=== PATIENT | female | born 1985 | race Two or more races ===

== ENCOUNTER 2017-03-15 17:00 | Observation (INO) | payer MEDICAID ==
[~2017-03-15] VITALS: Ht 165.1 cm; Wt 102.5 kg
[~2017-03-15 17:00] MED LIST: ACYC1CAP23 PO; PRENTAB28 PO
[2017-03-15] MEDS ORDERED: NIFEdipine 10 MG CAP PO SCH (17:30)
[2017-03-15] MEDS ORDERED: BETAMETHASONE ACET (6MG/ML) 5ML VIAL ONE (17:52)
[2017-03-16] MEDS ORDERED: BETAMETHASONE ACET (6MG/ML) 5ML VIAL IM SCH (17:30)
== END 2017-03-15 18:45 | disposition home or self-care (01) | DRG 566 ==
LOC: LDRP 17:00
PROVIDERS: ADMIT Specialist; ATTEND Specialist
DX: O26.873 Cervical shortening, third trimester (principal); O30.009 Twin pregnancy, unspecified number of placenta and unspecified number of amniotic sacs, unspecified trimester; Z3A.32 32 weeks gestation of pregnancy
CPT/HCPCS: 59025; 81002; 96372; G0378; J0702

== ENCOUNTER 2017-03-16 17:33 | Observation (INO) | payer MEDICAID ==
[~2017-03-16] VITALS: Ht 30.5 cm; Wt 0.5 kg
[2017-03-16] MEDS ORDERED: BETAMETHASONE ACET (6MG/ML) 5ML VIAL IM ONE (17:45)
[2017-03-16 21:29] LABS: Urine Bilirubin Negative (Negative); Urine Blood Negative /uL (Negative); Urine Color Yellow (Yellow); Urine Glucose Normal (Normal); Urine Nitrite Negative (Negative); Urine RBC 4 /hpf (0 - 4); Urine Squamous Epithelial Cell MANY /hpf (<5); Urine Urobilinogen Normal (Negative)
[2017-03-16 21:30] LABS: Urine Ketone 1+ (Negative)
== END 2017-03-16 19:15 | disposition home or self-care (01) | DRG 566 ==
LOC: LDRP 17:33
PROVIDERS: ADMIT Specialist; ATTEND Specialist
DX: O62.9 Abnormality of forces of labor, unspecified (principal); Z87.891 Personal history of nicotine dependence; Z3A.32 32 weeks gestation of pregnancy
CPT/HCPCS: 59025; 81001; 81002; 87086; 96372; G0378

== ENCOUNTER 2017-03-18 15:50 | Observation (INO) | payer MEDICAID | END 2017-03-18 18:15 | disposition home or self-care (01) | DRG 566 | LOC: LDRP 15:50 | PROVIDERS: ADMIT Specialist; ATTEND Specialist | DX: O62.9 Abnormality of forces of labor, unspecified (principal); Z3A.33 33 weeks gestation of pregnancy | CPT/HCPCS: 59025; 76817; 76818; 81002; G0378 ==

== ENCOUNTER 2017-03-21 18:55 | Observation (INO) | payer MEDICAID | END 2017-03-21 20:16 | disposition home or self-care (01) | DRG 566 | LOC: LDRP 18:55 | PROVIDERS: ADMIT Obstetrics & Gynecology; ATTEND Obstetrics & Gynecology | DX: O26.893 Other specified pregnancy related conditions, third trimester (principal); O30.003 Twin pregnancy, unspecified number of placenta and unspecified number of amniotic sacs, third trimester; Z3A.33 33 weeks gestation of pregnancy | CPT/HCPCS: 59025; 76818; 81002; G0378 ==

== ENCOUNTER 2017-03-24 19:02 | Observation (INO) | payer MEDICAID | END 2017-03-24 20:56 | disposition home or self-care (01) | DRG 566 | LOC: LDRP 19:02 | PROVIDERS: ADMIT Obstetrics & Gynecology; ATTEND Obstetrics & Gynecology | DX: O62.9 Abnormality of forces of labor, unspecified (principal); O36.8130 Decreased fetal movements, third trimester, not applicable or unspecified; Z87.891 Personal history of nicotine dependence; Z3A.34 34 weeks gestation of pregnancy | CPT/HCPCS: 59025; 76818; 81002; 82962; G0378; 76817 ==

== ENCOUNTER 2017-03-31 16:00 | Observation (INO) | payer MEDICAID | END 2017-03-31 18:30 | disposition home or self-care (01) | DRG 563 | LOC: LDRP 16:00 | PROVIDERS: ADMIT Specialist; ATTEND Specialist | DX: O60.03 Preterm labor without delivery, third trimester (principal); O30.003 Twin pregnancy, unspecified number of placenta and unspecified number of amniotic sacs, third trimester; Z3A.35 35 weeks gestation of pregnancy | CPT/HCPCS: 59025; 76818; 81002; 82948; 82962; G0378 ==

== ENCOUNTER 2017-04-03 18:52 | Observation (INO) | payer MEDICAID | END 2017-04-03 23:56 | disposition home or self-care (01) | DRG 566 | LOC: LDRP 18:52 | PROVIDERS: ADMIT Obstetrics & Gynecology; ATTEND Obstetrics & Gynecology | DX: O62.9 Abnormality of forces of labor, unspecified (principal); O26.893 Other specified pregnancy related conditions, third trimester; O30.003 Twin pregnancy, unspecified number of placenta and unspecified number of amniotic sacs, third trimester; Z3A.35 35 weeks gestation of pregnancy | CPT/HCPCS: 59025; 76818; 81002; G0378 ==

== ENCOUNTER 2017-04-06 18:53 | Observation (INO) | payer MEDICAID | END 2017-04-06 21:00 | disposition home or self-care (01) | DRG 566 | LOC: LDRP 18:53 | PROVIDERS: ADMIT Obstetrics & Gynecology; ATTEND Obstetrics & Gynecology | DX: O26.893 Other specified pregnancy related conditions, third trimester (principal); O30.003 Twin pregnancy, unspecified number of placenta and unspecified number of amniotic sacs, third trimester; Z3A.35 35 weeks gestation of pregnancy | CPT/HCPCS: 59025; 76818; 81002; G0378; 76817 ==

== ENCOUNTER 2017-04-11 20:00 | Observation (INO) | payer MEDICAID ==
[2017-04-11] MEDS ORDERED: NIFEdipine 10 MG CAP ONE (22:20)
[2017-04-11] MEDS ORDERED: LIDOCAINE 2%HCL (LOCAL ANESTH.) INJ 20ML MDV ONE (22:56)
[2017-04-11] MEDS ORDERED: PENICILLIN G POT 5MIL/D5 50ML 0 ML IV ONE ×2 (22:57)
[2017-04-11] MEDS ORDERED: WITCH HAZEL-GLYCERIN PAD TOP ONE (22:57)
[2017-04-11] MEDS ORDERED: DERMOPLAST 60ML BOTTLE TOP ONE (22:57)
[2017-04-11] MEDS ORDERED: METHYLERGONOVINE MALEATE 0.2 MG/ML AMP IM ONE (22:57)
[2017-04-11] MEDS ORDERED: LACT. RINGERS/OXYTOCIN 20UNITS 0 ML IV ONE (22:57)
[2017-04-11] MEDS ORDERED: PHISODERM TOP SOLN 240ML BTL TOP ONE (22:57)
== END 2017-04-11 23:12 | disposition home or self-care (01) | DRG 566 ==
LOC: EDBD → LDRP 20:00
PROVIDERS: ADMIT Obstetrics & Gynecology; ATTEND Obstetrics & Gynecology
DX: O26.893 Other specified pregnancy related conditions, third trimester (principal); O30.003 Twin pregnancy, unspecified number of placenta and unspecified number of amniotic sacs, third trimester; Z3A.36 36 weeks gestation of pregnancy
CPT/HCPCS: 59025; 76818; 81002; G0378; J2540; J2590

== ENCOUNTER 2017-04-15 16:00 | Observation (INO) | payer MEDICAID | END 2017-04-15 17:48 | disposition home or self-care (01) | DRG 566 | LOC: EDBD → LDRP 16:00 | PROVIDERS: ADMIT Specialist; ATTEND Specialist | DX: O26.893 Other specified pregnancy related conditions, third trimester (principal); Z3A.37 37 weeks gestation of pregnancy | CPT/HCPCS: 59025; 76818; 81002; G0378 ==

== ENCOUNTER 2017-04-17 08:50 | Inpatient (IN) | payer MEDICAID ==
[~2017-04-17] VITALS: Ht 165.1 cm; Wt 105.7 kg
[2017-04-17] MEDS ORDERED: LACTATED RINGER'S 1,000 ML IV SCH ×3 (09:57→20:05)
[2017-04-17] MEDS ORDERED: FERR-7 PO (10:10)
[2017-04-17] MEDS ORDERED: PHISODERM TOP SOLN 240ML BTL TOP PRN (10:15)
[2017-04-17] MEDS ORDERED: NALBUPHINE HCL 10 MG/1ml INJECTION IV PRN (10:15)
[2017-04-17] MEDS ORDERED: DERMOPLAST 60ML BOTTLE TOP PRN (10:15)
[2017-04-17] MEDS ORDERED: WITCH HAZEL-GLYCERIN PAD TOP PRN (10:15)
[2017-04-17 10:59] LABS: Urine Bilirubin Negative (Negative); Urine Blood Negative /uL (Negative); Urine Color Yellow (Yellow); Urine Glucose Normal (Normal); Urine Nitrite Negative (Negative); Urine RBC <1 /hpf (0 - 4); Urine Squamous Epithelial Cell FEW /hpf (<5); Urine pH 6.5 (5.0-8.0)
[2017-04-17 11:01] LABS: Urine Ketone 3+ (Negative)
[2017-04-17 11:03] LABS: Basophils # (auto) 0 uL; Basophils % (auto) 0.4 % (0.0-2.0); CONDITION Y; DEFINITIVE SEE PRINTOUT; Eosinophils # (auto) 0.1 uL; Eosinophils % (auto) 0.9 % (0.0-7.0); Hematocrit 27.4 % (36.0-46.0); Lymphocytes # (auto) 1.5 uL; Lymphocytes % (auto) 23.5 % (10.0-50.0); Mean Corpuscular Hemoglobin 25.9 pg (28.0-32.0); Mean Corpuscular Hgb Conc. 32.8 g/dL (32.0-36.0); Mean Corpuscular Volume 78.9 fL (80.0-100.0); Mean Platelet Volume 9.9 fL (7.4-10.4); Monocytes # (auto) 0.3 uL; Monocytes % (auto) 4.9 % (0.0-12.0); Neutrophils # (auto) 4.6 uL; Neutrophils % (auto) 70.3 % (37.0-80.0); Platelet Count (auto) 170 10^3/uL (140-450); Red Cell Distribution Width 17.2 % (11.6-16.0); White Blood Cell 6.5 10^3/uL (4.4-10.8)
[2017-04-17 11:04] LABS: INR 0.94 (0.9-1.15); Partial Thromboplastin Time 29.9 sec (22.64-33.71); Prothrombin Time 10.2 sec (9.37-12.3)
[2017-04-17 11:09] LABS: Albumin 2.3 g/dL (3.4-5.0); BUN/Creatinine Ratio 10.8; Calcium 7.7 mg/dL (8.5-10.1); Potassium 3.2 mmol/L (3.5-5.1)
[2017-04-17 11:11] LABS: Bilirubin, Total 1.1 mg/dL (0.2-1.0); Total Protein 6.4 g/dL (6.4-8.2)
[2017-04-17] MEDS ORDERED: TETRACAINE 1% INJ 2 ML VIAL IJ ONE (17:30)
[2017-04-17] MEDS ORDERED: ePHEDrine SULFATE 50 MG/ML AMP ONE (17:34)
[2017-04-17] MEDS ORDERED: SODIUM CHLORIDE LOCK 20 ML ONE (17:34)
[2017-04-17] MEDS ORDERED: MORPHINE SULF(PF) 0.5MG/ML 10ML VIAL ONE (17:34)
[2017-04-17] MEDS ORDERED: OXYTOCIN 10 UNIT/ML 10ML VIAL ONE (17:34)
[2017-04-17] MEDS ORDERED: ceFAZolin 1GM VL ONE (17:34)
[2017-04-17] MEDS ORDERED: MIDAZOLAM HCL 1MG/1ML-2 ML VIAL ONE (17:34)
[2017-04-17] MEDS ORDERED: fentaNYL CITRATE 100 MCG/2 ML VL ONE (17:34)
[2017-04-17] MEDS ORDERED: NALOXONE HCL 0.4 MG/ML VIAL IV PRN (20:15)
[2017-04-17] MEDS ORDERED: METOCLOPRAMIDE HCL 5MG/ml INJ 2ml VIAL IV ONE (20:15)
[2017-04-17] MEDS ORDERED: diphenhdrAMINE HCL 50 MG/1 ML VL IV PRN (20:15)
[2017-04-17] MEDS ORDERED: KETOROLAC TROMETH 30 MG/ML 1ML VIAL IV ONE (20:15)
[2017-04-17] MEDS ORDERED: ONDANSETRON HCL 4 MG/2 ML VIAL IV PRN (20:15)
[2017-04-17] MEDS ORDERED: HYDROmorphone HCL 2 MG/ML VL IV PRN (20:15)
[2017-04-17 21:17] VITALS: BP 133/75
[2017-04-17 21:30] VITALS: BP 147/82
[2017-04-17 21:45] VITALS: BP 138/78
[2017-04-17 22:00] VITALS: BP 149/84
[2017-04-17 22:30] VITALS: BP 144/70
[2017-04-17] MEDS: ceFAZolin 1 GM/50ML D5W BAG IV SCH (22:30)
[2017-04-17] MEDS: HYDROmorphone HCL 2 MG/ML VL IV PRN (22:42)
[2017-04-17 23:00] VITALS: BP 141/78
[2017-04-17] MEDS: KETOROLAC TROMETH 30 MG/ML 1ML VIAL IV SCH (23:53)
[2017-04-18] VITALS (11 sets, daily range): BP systolic 122–142; BP diastolic 62–87
[2017-04-18] MEDS: HYDROmorphone HCL 2 MG/ML VL IV PRN (04:16)
[2017-04-18] MEDS: LACTATED RINGER'S 1,000 ML IV SCH ×2 (05:06→15:06)
[2017-04-18] MEDS: KETOROLAC TROMETH 30 MG/ML 1ML VIAL IV SCH (05:30)
[2017-04-18] MEDS: ceFAZolin 1 GM/50ML D5W BAG IV SCH ×3 (05:30→15:00)
[2017-04-18 06:47] LABS: Basophils # (auto) 0 uL; Basophils % (auto) 0.4 % (0.0-2.0); CONDITION Y; DEFINITIVE SEE PRINTOUT; Eosinophils # (auto) 0 uL; Eosinophils % (auto) 0.4 % (0.0-7.0); Hemoglobin 9.3 g/dL (12.2-16.2); Lymphocytes # (auto) 1.1 uL; Lymphocytes % (auto) 15.9 % (10.0-50.0); Mean Corpuscular Hemoglobin 26.9 pg (28.0-32.0); Mean Corpuscular Hgb Conc. 34.3 g/dL (32.0-36.0); Mean Corpuscular Volume 78.4 fL (80.0-100.0); Monocytes # (auto) 0.3 uL; Monocytes % (auto) 4.7 % (0.0-12.0); Neutrophils # (auto) 5.3 uL; Neutrophils % (auto) 78.6 % (37.0-80.0); Platelet Count (auto) 157 10^3/uL (140-450); Red Cell Distribution Width 16.8 % (11.6-16.0); White Blood Cell 6.7 10^3/uL (4.4-10.8)
[2017-04-18] MEDS ORDERED: POTASSIUM CHL 20 Meq TABLET PO ONE (09:00)
[2017-04-18] MEDS: DOCUSATE SOD 100 MG CAP PO SCH ×2 (10:53→22:44)
[2017-04-18] MEDS: traMADol HCL 50 MG TAB PO PRN ×3 (11:27→23:27)
[2017-04-18] MEDS ORDERED: SIMETHICONE 80 MG CHEWABLE TABLET PO PRN (22:00)
[2017-04-19 03:30] VITALS: BP 147/90
[2017-04-19] MEDS: traMADol HCL 50 MG TAB PO PRN ×4 (05:36→19:57)
[2017-04-19 08:00] VITALS: BP 139/81
[2017-04-19 12:30] VITALS: BP 133/83
[2017-04-19] MEDS: DOCUSATE SOD 100 MG CAP PO SCH ×2 (13:28→22:04)
[2017-04-19] MEDS ORDERED: TETANUS-DIPTH-ACEL PERTUSSIS 0.5ML SYRG IM ONE (14:15)
[2017-04-19 16:00] VITALS: BP 136/86
[2017-04-19 19:56] VITALS: BP 149/84
[2017-04-19 23:09] VITALS: BP 146/85
[2017-04-20 03:09] VITALS: BP 135/83
[2017-04-20] MEDS: traMADol HCL 50 MG TAB PO PRN (03:16)
[2017-04-20 03:22] LABS: Basophils # (auto) 0 uL; Basophils % (auto) 0.1 % (0.0-2.0); CONDITION Y; DEFINITIVE SEE PRINTOUT; Eosinophils # (auto) 0.1 uL; Eosinophils % (auto) 1.4 % (0.0-7.0); Hematocrit 27.6 % (36.0-46.0); Hemoglobin 9.1 g/dL (12.2-16.2); Lymphocytes # (auto) 1.5 uL; Lymphocytes % (auto) 21.9 % (10.0-50.0); Mean Corpuscular Hemoglobin 25.8 pg (28.0-32.0); Mean Corpuscular Hgb Conc. 32.8 g/dL (32.0-36.0); Mean Corpuscular Volume 78.6 fL (80.0-100.0); Mean Platelet Volume 9.4 fL (7.4-10.4); Monocytes # (auto) 0.4 uL; Monocytes % (auto) 6.1 % (0.0-12.0); Neutrophils # (auto) 4.7 uL; Neutrophils % (auto) 70.5 % (37.0-80.0); Platelet Count (auto) 185 10^3/uL (140-450); Red Cell Distribution Width 17.1 % (11.6-16.0); White Blood Cell 6.7 10^3/uL (4.4-10.8)
[2017-04-20 08:09] VITALS: BP 134/70
== END 2017-04-20 11:30 | disposition home or self-care (01) | DRG 540 ==
LOC: LDRP 08:50
PROVIDERS: ADMIT Specialist; ATTEND Specialist
PROC: 10D00Z1 Extraction of Products of Conception, Low, Open Approach (ICD-10-PCS; principal; 2017-04-17 16:45)
DX: O32.8XX2 Maternal care for other malpresentation of fetus, fetus 2 (principal); O98.32 Other infections with a predominantly sexual mode of transmission complicating childbirth; O30.043 Twin pregnancy, dichorionic/diamniotic, third trimester; Z37.2 Twins, both liveborn; Z3A.37 37 weeks gestation of pregnancy; A60.00 Herpesviral infection of urogenital system, unspecified; Z23 Encounter for immunization
CPT/HCPCS: 36415; 51702; 59025; 80053; 80307; 81001; 84132; 85025; 85610; 85730; 86592; 86850; 86900; 86901; 86920; 90715; 94762; 96361; 96366; 96372; 96375; J0690; J1885; J2250; J2405; J2590

== ENCOUNTER 2018-04-23 19:41 | Inpatient (IN) | payer MEDICAID ==
[~2018-04-23] VITALS: Ht 165.1 cm; Wt 91.3 kg
[~2018-04-23 19:41] MED LIST changes: +FERR-7 PO; +LEVO500T21 PO; +METR500T PO; +TRAM50TA2 PO
[2018-04-23] MEDS ORDERED: IBUPROFEN 600 MG TAB PO ONE (20:00)
[2018-04-23 20:44] LABS: Hemoglobin 10.9 g/dL (12.2-16.2); Monocytes # (auto) 0.9 uL; Monocytes % (auto) 10.3 % (0.0-12.0); Red Cell Distribution Width 16.5 % (11.8-14.3)
[2018-04-23 20:46] LABS: Basophils # (auto) 0.1 uL; Basophils % (auto) 0.6 % (0.0-2.0); Eosinophils # (auto) 0.3 uL; Eosinophils % (auto) 2.8 % (0.0-7.0); Hematocrit 33.9 % (36.0-46.0); Lymphocytes % (auto) 11.3 % (10.0-50.0); Mean Corpuscular Hemoglobin 24.3 pg (28.0-32.0); Mean Corpuscular Hgb Conc. 32.2 g/dL (32.0-36.0); Mean Corpuscular Volume 75.3 fL (80.0-100.0); Neutrophils # (auto) 6.6 uL; Platelet Count (auto) 293 10^3/uL (140-450); Red Blood Cells 4.51 10^6/uL (4.0-5.20); White Blood Cell 8.9 10^3/uL (4.4-10.8)
[2018-04-23 20:51] LABS: Albumin 3.2 g/dL (3.4-5.0); Calcium 8.4 mg/dL (8.5-10.1); Magnesium 2.1 mg/dL (1.6-2.6)
[2018-04-23 20:54] LABS: Bilirubin, Total 1.5 mg/dL (0.2-1.0); Total Protein 7.9 g/dL (6.4-8.2)
[2018-04-23 21:09] LABS: Potassium 2.5 mmol/L (3.5-5.1)
[2018-04-23] MEDS ORDERED: POTASSIUM CHL 20 Meq TABLET PO ONE (21:15)
[2018-04-24] MEDS ORDERED: SODIUM CHLORIDE 0.9% 1,000 ML IV ONE (02:30)
[2018-04-24] MEDS ORDERED: cefTRIAXone 1GM/10ml IVPUSH 10 ML IV ONE (02:30)
[2018-04-24] MEDS ORDERED: ONDANSETRON HCL 4 MG/2 ML VIAL IV PRN (03:00)
[2018-04-24] MEDS ORDERED: TEMAZEPAM 15 MG CAP PO PRN (03:00)
[2018-04-24] MEDS ORDERED: SODIUM CHLORIDE 0.9% 1,000 ML IV SCH (03:00)
[2018-04-24] MEDS ORDERED: IBUPROFEN 600 MG TAB PO PRN (03:00)
[2018-04-24 04:52] LABS: Urine Bacteria MOD /hpf (None Seen); Urine Blood 1+ /uL (Negative); Urine Mucus FEW (None Seen); Urine Specific Gravity 1.017 (1.001-1.035); Urine WBC 24 /hpf (0 - 5)
[2018-04-24] MEDS: MORPHINE SULFATE 4 MG/ML SYR/VIAL IV PRN (06:33)
[2018-04-24] MEDS: FAMOTIDINE 20 MG TAB PO SCH ×2 (09:55→21:59)
[2018-04-24] MEDS: FERROUS SULFATE 325 MG TAB PO SCH ×2 (09:55→18:14)
[2018-04-24] MEDS ORDERED: POTASSIUM CHL 20 Meq TABLET PO ONE (10:00)
[2018-04-24] MEDS ORDERED: LEVOFLOXACIN 500MG 100 ML IV SCH (10:00)
[2018-04-24] MEDS ORDERED: PROMETHAZINE HCL 25 MG/ML 1ML IV PRN (12:30)
[2018-04-24] MEDS: SOD CHL 0.9%/ KCL 40MEQ 1,000 ML IV SCH ×2 (12:53→21:59)
[2018-04-24] MEDS: metroNIDAZOLE 500 MG TAB PO SCH ×3 (12:54→21:59)
[2018-04-24 13:00] VITALS: BP 116/73
[2018-04-24 16:45] VITALS: BP 110/68
[2018-04-24 22:00] VITALS: BP 115/68
[2018-04-25 05:00] VITALS: BP 103/61
[2018-04-25] MEDS: metroNIDAZOLE 500 MG TAB PO SCH ×3 (05:45→21:09)
[2018-04-25] MEDS: SOD CHL 0.9%/ KCL 40MEQ 1,000 ML IV SCH (06:15)
[2018-04-25 07:06] LABS: Basophils # (auto) 0 uL; Basophils % (auto) 0.6 % (0.0-2.0); Eosinophils # (auto) 0.3 uL; Hemoglobin 8.3 g/dL (12.2-16.2); Mean Corpuscular Hemoglobin 24.4 pg (28.0-32.0); Monocytes # (auto) 0.4 uL; Platelet Count (auto) 184 10^3/uL (140-450); Red Cell Distribution Width 16.2 % (11.8-14.3); White Blood Cell 3.7 10^3/uL (4.4-10.8)
[2018-04-25 07:08] LABS: Eosinophils % (auto) 7.9 % (0.0-7.0); Hematocrit 25.5 % (36.0-46.0); Lymphocytes % (auto) 26.4 % (10.0-50.0); Mean Corpuscular Hgb Conc. 32.6 g/dL (32.0-36.0); Mean Corpuscular Volume 74.8 fL (80.0-100.0); Monocytes % (auto) 10.4 % (0.0-12.0); Neutrophils % (auto) 54.7 % (37.0-80.0); Red Blood Cells 3.41 10^6/uL (4.0-5.20)
[2018-04-25 07:32] LABS: Albumin 2.4 g/dL (3.4-5.0); BUN/Creatinine Ratio 9.8; Bilirubin, Direct 0.1 mg/dL (0-0.2); Bilirubin, Total 0.4 mg/dL (0.2-1.0); Calcium 7.8 mg/dL (8.5-10.1); Magnesium 2.4 mg/dL (1.6-2.6); Potassium 3.5 mmol/L (3.5-5.1); Total Protein 6.1 g/dL (6.4-8.2)
[2018-04-25] MEDS: MORPHINE SULFATE 4 MG/ML SYR/VIAL IV PRN ×2 (08:05→13:20)
[2018-04-25 08:15] VITALS: BP 120/72
[2018-04-25] MEDS: FERROUS SULFATE 325 MG TAB PO SCH ×2 (10:00→18:00)
[2018-04-25] MEDS: FAMOTIDINE 20 MG TAB PO SCH ×2 (10:00→21:10)
[2018-04-25 13:00] VITALS: BP 107/77
[2018-04-25 17:15] VITALS: BP 122/78
[2018-04-25 22:06] VITALS: BP 100/69
[2018-04-26] MEDS: metroNIDAZOLE 500 MG TAB PO SCH ×2 (05:27→13:16)
[2018-04-26 05:32] VITALS: BP 103/67
[2018-04-26 06:30] LABS: Basophils # (auto) 0 uL; Basophils % (auto) 0.7 % (0.0-2.0); Lymphocytes # (auto) 1.1 uL; Monocytes # (auto) 0.3 uL; Nucleated Red Blood Cells % 0.1 %; Platelet Count (auto) 218 10^3/uL (140-450)
[2018-04-26 06:41] LABS: Eosinophils # (auto) 0.4 uL; Eosinophils % (auto) 8.8 % (0.0-7.0); Hematocrit 26.7 % (36.0-46.0); Hemoglobin 8.8 g/dL (12.2-16.2); Lymphocytes % (auto) 25.2 % (10.0-50.0); Mean Corpuscular Hemoglobin 24.6 pg (28.0-32.0); Mean Corpuscular Hgb Conc. 33.1 g/dL (32.0-36.0); Mean Corpuscular Volume 74.4 fL (80.0-100.0); Monocytes % (auto) 7.5 % (0.0-12.0); Neutrophils # (auto) 2.5 uL; Neutrophils % (auto) 57.8 % (37.0-80.0); Red Blood Cells 3.59 10^6/uL (4.0-5.20); Red Cell Distribution Width 16.3 % (11.8-14.3); White Blood Cell 4.4 10^3/uL (4.4-10.8)
[2018-04-26 06:48] LABS: Calcium 7.9 mg/dL (8.5-10.1)
[2018-04-26 06:49] LABS: BUN/Creatinine Ratio 12.5
[2018-04-26] MEDS ORDERED: POTASSIUM CHL 20 Meq TABLET PO ONE (07:45)
[2018-04-26 08:00] VITALS: BP 110/71
[2018-04-26 08:17] VITALS: BP 110/71
[2018-04-26] MEDS: FAMOTIDINE 20 MG TAB PO SCH (09:27)
[2018-04-26] MEDS: FERROUS SULFATE 325 MG TAB PO SCH (09:28)
[2018-04-26 11:57] VITALS: BP 110/71
[2018-04-26 13:00] VITALS: BP 116/72
== END 2018-04-26 15:10 | disposition home or self-care (01) | DRG 720 ==
LOC: ER 19:41 → OVERFLOW 19:42 → WEST WING 04-24 08:35
PROVIDERS: ADMIT Nurse Practitioner; ATTEND Internal Medicine
DX: A41.9 Sepsis, unspecified organism (principal); A04.72 Enterocolitis due to Clostridium difficile, not specified as recurrent; K76.0 Fatty (change of) liver, not elsewhere classified; N39.0 Urinary tract infection, site not specified; E87.6 Hypokalemia; R79.89 Other specified abnormal findings of blood chemistry; F17.210 Nicotine dependence, cigarettes, uncomplicated; E44.1 Mild protein-calorie malnutrition; F10.20 Alcohol dependence, uncomplicated; J98.11 Atelectasis; F12.90 Cannabis use, unspecified, uncomplicated; D53.9 Nutritional anemia, unspecified; Z90.49 Acquired absence of other specified parts of digestive tract; Z82.49 Family history of ischemic heart disease and other diseases of the circulatory system; Z83.3 Family history of diabetes mellitus; Z88.8 Allergy status to other drugs, medicaments and biological substances; Z79.899 Other long term (current) drug therapy; Z68.33 Body mass index [BMI] 33.0-33.9, adult
CPT/HCPCS: 36415; 74176; 80048; 80053; 80076; 81001; 81025; 83605; 83690; 83735; 85025; 87040; 87081; 87493; 96361; 96374; 96375; 96376; J0696; J1956; J2405

== ENCOUNTER 2018-08-21 14:02 | Emergency (ER) | payer MEDICAID ==
[~2018-08-21] VITALS: Ht 165.1 cm; Wt 84.4 kg
[~2018-08-21 14:02] MED LIST changes: -ACYC1CAP23 PO; +ESCI5TAB PO; -FERR-7 PO; -LEVO500T21 PO; +MEDR5TAB PO; -METR500T PO; -PRENTAB28 PO; -TRAM50TA2 PO
[2018-08-21 15:31] LABS: Basophils # (auto) 0 uL; Eosinophils # (auto) 0.1 uL; Hematocrit 21.6 % (36.0-46.0); Mean Corpuscular Hemoglobin 22.2 pg (28.0-32.0); Mean Corpuscular Hgb Conc. 30.8 g/dL (32.0-36.0); Mean Corpuscular Volume 72.1 fL (80.0-100.0); Neutrophils # (auto) 3.7 uL; Nucleated Red Blood Cells % 0.1 %; Red Cell Distribution Width 16.3 % (11.8-14.3); White Blood Cell 5.5 10^3/uL (4.4-10.8)
[2018-08-21 15:33] LABS: Basophils % (auto) 0.6 % (0.0-2.0); Eosinophils % (auto) 1.1 % (0.0-7.0); Lymphocytes # (auto) 1.4 uL; Lymphocytes % (auto) 25.3 % (10.0-50.0); Monocytes # (auto) 0.4 uL; Monocytes % (auto) 6.4 % (0.0-12.0); Neutrophils % (auto) 66.6 % (37.0-80.0); Platelet Count (auto) 197 10^3/uL (140-450)
[2018-08-21 15:45] LABS: Hemoglobin 6.7 g/dL (12.2-16.2)
[2018-08-21 15:46] LABS: Albumin 3.8 g/dL (3.4-5.0); BUN/Creatinine Ratio 13.8; Calcium 8.4 mg/dL (8.5-10.1); Potassium 3.3 mmol/L (3.5-5.1)
[2018-08-21 15:49] LABS: Bilirubin, Total 1.1 mg/dL (0.2-1.0); Total Protein 7.5 g/dL (6.4-8.2)
[2018-08-21 16:09] LABS: Urine Bacteria FEW /hpf (None Seen); Urine Blood Negative /uL (Negative); Urine Mucus FEW (None Seen); Urine Specific Gravity 1.031 (1.001-1.035); Urine WBC 14 /hpf (0 - 5)
[2018-08-21] MEDS ORDERED: SODIUM CHLORIDE 0.9% 1,000 ML IVB ONE (17:07)
[2018-08-21 18:25] LABS: INR 0.99 (0.9-1.15); Partial Thromboplastin Time 25.4 sec (23.78-33.04); Prothrombin Time 10.6 sec (9.27-12.13)
[2018-08-21 21:00] VITALS: BP 118/77
[2018-08-21 21:15] VITALS: BP 109/75
[2018-08-21] MEDS ORDERED: POTASSIUM CHL 20 Meq TABLET PO ONE (21:15)
[2018-08-21 21:30] VITALS: BP 122/76
[2018-08-21 21:45] VITALS: BP 121/71
[2018-08-21 22:00] VITALS: BP 122/73
[2018-08-21] MEDS ORDERED: cefTRIAXone 1GM/50ML D5W 50 ML IV ONE (23:00)
[2018-08-21 23:18] VITALS: BP 104/68
[2018-08-22] VITALS (7 sets, daily range): BP systolic 98–117; BP diastolic 53–75
[2018-08-22 07:40] LABS: Hemoglobin 8.4 g/dL (12.2-16.2)
[2018-08-22 07:42] LABS: Hematocrit 26.2 % (36.0-46.0)
== END 2018-08-22 08:44 | disposition home or self-care (01) ==
LOC: ER 14:08
DX: N92.0 Excessive and frequent menstruation with regular cycle (principal); D64.9 Anemia, unspecified; E87.6 Hypokalemia; N39.0 Urinary tract infection, site not specified; F17.210 Nicotine dependence, cigarettes, uncomplicated; Z90.49 Acquired absence of other specified parts of digestive tract; Z88.8 Allergy status to other drugs, medicaments and biological substances; Z90.89 Acquired absence of other organs
CPT/HCPCS: 36415; 36430; 76856; 80053; 81001; 83735; 84702; 85014; 85018; 85025; 85610; 85730; 86850; 86900; 86901; 86920; 94761; 96365; 99285; J0696; J7030; J7040; P9016

== ENCOUNTER → 2018-08-23 | Day surgery (SDC) | payer MEDICAID ==
[~2018-08-23] VITALS: Ht 165.1 cm; Wt 84.4 kg
[~2018-08-23] MED LIST changes: +CLINDAMYCIN 900MG IV 50 ML IV ONE; +FERRIC SUBSULFATE TOPICAL SOLN 30 ML BTL ONE; +IODINE STRONG 5% SOLN 473ML ONE; +LACTATED RINGER'S 1,000 ML IV SCH; +MIDAZOLAM HCL 1MG/1ML-2 ML VIAL ONE; +ONDANSETRON HCL 4 MG/2 ML VIAL IV ONE; +ONDANSETRON HCL 4 MG/2 ML VIAL IV PRN; +PROPOFOL 10 MG/ML 20 ML IV ONE; +ePHEDrine SULFATE 50 MG/ML AMP IV PRN; +fentaNYL CITRATE 100 MCG/2 ML VL IV PRN; +fentaNYL CITRATE 100 MCG/2 ML VL ONE; +hydrALAZINE HCL 20 MG/ML VL IV PRN
[2018-08-23 12:30] VITALS: BP 117/77
== END | disposition home or self-care (01) ==
LOC: SUR 08:15
PROVIDERS: ATTEND Specialist
DX: D06.0 Carcinoma in situ of endocervix (principal); D64.9 Anemia, unspecified; F41.9 Anxiety disorder, unspecified; F17.210 Nicotine dependence, cigarettes, uncomplicated; F10.99 Alcohol use, unspecified with unspecified alcohol-induced disorder; E66.9 Obesity, unspecified; Z88.6 Allergy status to analgesic agent; Z90.49 Acquired absence of other specified parts of digestive tract; Z82.49 Family history of ischemic heart disease and other diseases of the circulatory system; Z79.899 Other long term (current) drug therapy; Z68.31 Body mass index [BMI] 31.0-31.9, adult; Z83.3 Family history of diabetes mellitus
CPT/HCPCS: 57522; J3010; 86850; 86900; 86901; J2250; J2704; J3490

== ENCOUNTER 2020-04-05 13:28 | Emergency (ER) | payer MEDICAID ==
[~2020-04-05] VITALS: Ht 165.1 cm; Wt 93.0 kg
[~2020-04-05 13:28] MED LIST changes: -CLINDAMYCIN 900MG IV 50 ML IV ONE; -FERRIC SUBSULFATE TOPICAL SOLN 30 ML BTL ONE; -IODINE STRONG 5% SOLN 473ML ONE; -LACTATED RINGER'S 1,000 ML IV SCH; -MEDR5TAB PO; +MEDR5TAB28 PO; -MIDAZOLAM HCL 1MG/1ML-2 ML VIAL ONE; -ONDANSETRON HCL 4 MG/2 ML VIAL IV ONE; -ONDANSETRON HCL 4 MG/2 ML VIAL IV PRN; -PROPOFOL 10 MG/ML 20 ML IV ONE; -ePHEDrine SULFATE 50 MG/ML AMP IV PRN; -fentaNYL CITRATE 100 MCG/2 ML VL IV PRN; -fentaNYL CITRATE 100 MCG/2 ML VL ONE; -hydrALAZINE HCL 20 MG/ML VL IV PRN
[2020-04-05 14:02] VITALS: BP 126/95
== END 2020-04-05 14:26 | disposition home or self-care (01) ==
LOC: ER 13:28
DX: J02.9 Acute pharyngitis, unspecified (principal); R05 Cough; Z20.828 Contact with and (suspected) exposure to other viral communicable diseases; Z86.2 Personal history of diseases of the blood and blood-forming organs and certain disorders involving the immune mechanism; Z79.899 Other long term (current) drug therapy; Z88.6 Allergy status to analgesic agent
CPT/HCPCS: 99283; U0003

== ENCOUNTER 2021-12-15 12:25 | Emergency (ER) | payer MEDICAID ==
[~2021-12-15] VITALS: Ht 165.1 cm; Wt 86.2 kg
[2021-12-15 12:28] VITALS: BP 148/90
[2021-12-15 13:52] LABS: Basophils # (auto) 0 10 ^3/uL (0-0.2); Lymphocytes # (auto) 1.1 10 ^3/uL (0.4-5.4); Neutrophils # (auto) 2.5 10 ^3/uL (1.6-8.6); Red Cell Distribution Width 16.5 % (11.8-14.3)
[2021-12-15 13:56] LABS: Basophils % (auto) 0.7 % (0.0-2.0); Eosinophils # (auto) 0.1 10 ^3/uL (0-0.8); Eosinophils % (auto) 1.5 % (0.0-7.0); Hematocrit 27.9 % (36.0-46.0); Lymphocytes % (auto) 27.6 % (10.0-50.0); Mean Corpuscular Hemoglobin 22.2 pg (28.0-32.0); Mean Corpuscular Hgb Conc. 32.1 g/dL (32.0-36.0); Mean Corpuscular Volume 69.1 fL (80.0-100.0); Monocytes # (auto) 0.3 10 ^3/uL (0-1.3); Monocytes % (auto) 6.6 % (0.0-12.0); Neutrophils % (auto) 63.6 % (37.0-80.0); Red Blood Cells 4.04 10^6/uL (4.0-5.20); White Blood Cell 3.9 10^3/uL (4.4-10.8)
[2021-12-15 14:11] LABS: Potassium 3.1 mmol/L (3.5-5.1)
[2021-12-15 14:14] LABS: Albumin 3.8 g/dL (3.4-5.0); BUN/Creatinine Ratio 11.8; Calcium 8.6 mg/dL (8.5-10.1)
[2021-12-15 14:16] LABS: Bilirubin, Total 1.4 mg/dL (0.2-1.0); Total Protein 7.2 g/dL (6.4-8.2)
[2021-12-15 14:26] LABS: Urine Bacteria NONE SEEN /hpf (None Seen); Urine Blood Negative /uL (Negative); Urine Specific Gravity 1.008 (1.001-1.035); Urine WBC 2 /hpf (0 - 5)
[2021-12-15] MEDS ORDERED: POTASSIUM CHL 20 Meq TABLET PO ONE (15:00)
== END 2021-12-15 18:10 | disposition left against medical advice (07) ==
LOC: ER 12:25
DX: S09.90XA Unspecified injury of head, initial encounter (principal); R55 Syncope and collapse; Z86.2 Personal history of diseases of the blood and blood-forming organs and certain disorders involving the immune mechanism; Z90.49 Acquired absence of other specified parts of digestive tract; Z79.899 Other long term (current) drug therapy; Z88.8 Allergy status to other drugs, medicaments and biological substances; X58.XXXA Exposure to other specified factors, initial encounter; Y93.89 Activity, other specified; Y92.89 Other specified places as the place of occurrence of the external cause; Y99.8 Other external cause status
CPT/HCPCS: 36415; 70450; 72131; 80053; 81001; 81025; 82962; 85025; 93005

== ENCOUNTER 2022-11-07 11:45 | Emergency (ER) | payer MEDICAID ==
[~2022-11-07] VITALS: Ht 165.1 cm; Wt 78.4 kg
[2022-11-07 11:58] VITALS: BP 141/77
[2022-11-07 12:16] LABS: Basophils # (auto) 0 10 ^3/uL (0-0.2); Eosinophils # (auto) 0.1 10 ^3/uL (0-0.8); Lymphocytes # (auto) 1.4 10 ^3/uL (0.4-5.4)
[2022-11-07 12:18] LABS: Basophils % (auto) 0.5 % (0.0-2.0); Eosinophils % (auto) 1.7 % (0.0-7.0); Hematocrit 26.5 % (36.0-46.0); Hemoglobin 8.3 g/dL (12.2-16.2); Lymphocytes % (auto) 27.5 % (10.0-50.0); Mean Corpuscular Hemoglobin 22.6 pg (28.0-32.0); Mean Corpuscular Hgb Conc. 31.5 g/dL (32.0-36.0); Mean Corpuscular Volume 71.6 fL (80.0-100.0); Monocytes # (auto) 0.2 10 ^3/uL (0-1.3); Monocytes % (auto) 4.8 % (0.0-12.0); Neutrophils # (auto) 3.3 10 ^3/uL (1.6-8.6); Neutrophils % (auto) 65.5 % (37.0-80.0); Nucleated Red Blood Cells % 0.1 %; Red Cell Distribution Width 18.2 % (11.8-14.3)
[2022-11-07 12:32] LABS: Albumin 4.1 g/dL (3.4-5.0); Calcium 8.3 mg/dL (8.5-10.1); Potassium 4.1 mmol/L (3.5-5.1)
[2022-11-07 12:36] LABS: BUN/Creatinine Ratio 16.2; Bilirubin, Total 1.1 mg/dL (0.2-1.0); Total Protein 7.6 g/dL (6.4-8.2)
[2022-11-07 16:03] LABS: Urine Bacteria FEW /hpf (None Seen); Urine Blood 3+ /uL (Negative); Urine Specific Gravity 1.005 (1.001-1.035); Urine WBC 2 /hpf (0 - 5)
[2022-11-07] MEDS ORDERED: MEDR5TAB28 PO (16:40)
[2022-11-07] MEDS ORDERED: FER325T PO (16:42)
== END 2022-11-07 17:16 | disposition home or self-care (01) ==
LOC: ER 11:45
DX: N93.9 Abnormal uterine and vaginal bleeding, unspecified (principal)
CPT/HCPCS: 36415; 76830; 76856; 80053; 81001; 85025; 86850; 86900; 86901